=== PATIENT | female | born 1970 | race Caucasian/White ===

== ENCOUNTER 2017-05-27 14:13 | Emergency (ER) | payer BC ==
[2017-05-27 14:27] VITALS: BP 112/68
--- NOTE | 2017-05-27 14:31 | EDM.PDOC ---
ED HPI GENERAL MEDICAL PROBLEM - General Chief Complaint: Respiratory Problem Stated Complaint: [id number] TROUBLE BREATHING Time Seen by Provider: 05/27/17 14:25 Source of Information: Reports: Patient History Limitations: Reports: No Limitations - History of Present Illness INITIAL COMMENTS - FREE TEXT/NARRATIVE: Patient complains of progressively worsening cough over the past 1-2 weeks. Cough is productive. Intermittent fever. Complains of fatigue. She does not have flulike symptoms with body aches high fever. Denies sinus congestion. Onset: Gradual Duration: Day(s): Location: Reports: Chest Quality: Reports: Dull Severity: Moderate Associated Symptoms: Reports: Cough, cough w sputum, Fever/Chills Right Upper Chest Pain Score (Numeric/FACES): 0 - Related Data Allergies Allergy/AdvReac Type Severity Reaction Status Date / Time No Known Allergies Allergy Verified 05/27/17 14:18 Home Meds: Home Meds Iron 65 mg PO BID 11/15/14 [History] Metoprolol Tartrate [Lopressor] 50 mg PO BID 11/15/14 [History] OXcarbazepine [Oxcarbazepine] 300 mg PO BID 05/27/17 [History] Past Medical History Other Neuro History: Hx:aneurysm Social & Family History - Tobacco Use Smoking Status *Q: Never Smoker - Recreational Drug Use Recreational Drug Use: No - Living Situation & Occupation Living situation: Reports: Single Occupation: Employed ED ROS GENERAL - Review of Systems Review Of Systems: See Below Constitutional: Reports: Fever, Chills, Malaise, Fatigue HEENT: Reports: No Symptoms Respiratory: Reports: Cough, Sputum Cardiovascular: Reports: No Symptoms Endocrine: Reports: Fatigue : Reports: Incontinence Musculoskeletal: Reports: No Symptoms Skin: Reports: No Symptoms Neurological: Reports: No Symptoms ED EXAM, GENERAL - Physical Exam Exam: See Below Exam Limited By: No Limitations General Appearance: Alert, WD/WN Respiratory/Chest: No Respiratory Distress, Other (Fine rales to the right lung base. Midline bronchial breath sounds. No expiratory wheezing. Left lung field is clear) Cardiovascular: Normal Peripheral Pulses, Regular Rate, Rhythm, No Murmur Psychiatric: Normal Affect Skin Exam: Warm, Dry Course - Vital Signs Last Recorded V/S: Last Vital Signs Temp 97.1 F 05/27/17 14:22 Pulse 74 05/27/17 14:22 Resp 16 05/27/17 14:22 BP 112/68 05/27/17 14:22 Pulse Ox 97 05/27/17 14:22 - Re-Assessments/Exams Free Text/Narrative Re-Assessment/Exam: patient notes improvement after DuoNeb nebulizer. Improved air movement. 05/27/17 15:04 Departure - Departure Time of Disposition: 15:02 Disposition: Home, Self-Care 01 Preliminary Cause of *Q: Sepsis & Multi System Organ Failure Condition: Good Clinical Impression: Pneumonia Qualifiers: Pneumonia type: due to unspecified organism Laterality: right Lung location: lower lobe of lung Qualified Code(s): J18.1 - Lobar pneumonia, unspecified organism - Discharge Information Instructions: Community-Acquired Pneumonia, Adult Forms: ED Department Discharge Additional Instructions: Take medications as prescribed. No work today. May return tomorrow. Follow-up with regular provider in one to 2 weeks. Call or return sooner if she is having worsening symptoms problems questions or concerns
[2017-05-27] MEDS ORDERED: Albuterol/Ipratropium 3.0-0.5 MG/3 ML Neb Soln NEB ONE (14:37)
== END 2017-05-27 15:11 | disposition home or self-care (01) ==
LOC: DL.ED 14:13
DX: J18.9 Pneumonia, unspecified organism (principal)
CPT/HCPCS: 99283

== ENCOUNTER 2024-01-27 14:44 | Emergency (ER) | payer OTHER, BC ==
[2024-01-27 15:35] VITALS: BP 133/81; PULSE 74
[2024-01-27] MEDS ORDERED: Iopamidol 612 MG/ML 100 ML Bottle IVPUSH ONE (15:43)
[2024-01-27] MEDS: fentaNYL 100 MCG/2 ML SDV IVPUSH ONE (15:48)
[2024-01-27 15:55] LABS: BASOPHILS PERCENT AUTO 0.3 % (0.0-1.0); EOSINOPHILS PERCENT AUTO 1.3 % (1.0-3.0); HEMATOCRIT 41.2 % (37.0-47.0); HEMOGLOBIN 13.1 g/dL (12.0-16.0); MEAN CORPUSCULAR HEMOGLOBIN 28.7 pg (27.0-34.0); MEAN CORPUSCULAR HGB CONC 31.8 g/dL (33.0-35.0); MEAN CORPUSCULAR VOLUME 90.2 fL (80-100); MONOCYTES PERCENT AUTO 7.1 % (2-8); NEUTROPHILS PERCENT AUTO 68.3 % (42.2-75.2); PLATELET COUNT,PLT 300 10^3/uL (150-450); RED BLOOD CELL COUNT 4.57 10^6/uL (4.2-5.4); WHITE BLOOD CELL COUNT,WBC 8.6 10^3/uL (5.0-10.0)
[2024-01-27] MEDS: Sodium Chloride 0.9% 10 ML Syringe FLUSH PRN (16:02)
[2024-01-27 16:12] LABS: PROTHROMBIN TIME 10.4 SEC (9.0-12.0)
[2024-01-27 16:15] LABS: A/G RATIO 0.9; ALANINE AMINOTRANSFERASE,ALT 15 U/L (14-59); ALBUMIN 3.7 g/dL (3.4-5.0); ALKALINE PHOSPHATASE 97 U/L (46-116); ANION GAP 11.7 mEq/L (7-13); ASPARTATE AMNIOTRANSFERASE,AST 14 U/L (15-37); BILIRUBIN TOTAL 0.5 mg/dL (0.2-1.0); BLOOD UREA NITROGEN,BUN 14 mg/dL (7-18); BUN/CREATININE RATIO 10.1 (No establ ref range); CALCIUM 9.6 mg/dL (8.5-10.1); CARBON DIOXIDE,CO2 27 mmol/L (21-32); CHLORIDE,CL 103 mmol/L (98-107); CREATININE 1.39 mg/dL (0.55-1.02); ESTIMATED GFR 45 mL/min (>=60); GLUCOSE RANDOM 104 mg/dL (70-99); POTASSIUM,K 4.7 mmol/L (3.5-5.1); PROTEIN TOTAL,TP 7.7 g/dL (6.4-8.2); SODIUM,NA 137 mmol/L (136-145)
[2024-01-27] MEDS: LORazepam 2 MG/ML SDV IVPUSH ONE (16:26)
[2024-01-27] MEDS: Take Home: Acetaminophen/HYDROcodone 325-5 MG, 5 Tab Pack PO ONE (18:33)
== END 2024-01-27 18:38 | disposition home or self-care (01) ==
LOC: DL.ED 14:44
DX: M25.511 Pain in right shoulder (principal); M25.512 Pain in left shoulder; V89.2XXA Person injured in unspecified motor-vehicle accident, traffic, initial encounter
CPT/HCPCS: 36415; 71045; 73010; 73130; 73562; 80053; 85025; 85610; 96374; 99283; 99284; A9270; J3010; J3490